=== PATIENT | female | born 1950 | race Caucasian/White ===

== ENCOUNTER 2016-08-30 12:00 | Inpatient (IN) | payer BC ==
[~2016-08-30] VITALS: Ht 157.5 cm; Wt 63.0 kg
[~2016-08-30 12:00] MED LIST: CENTRUM KIDS PO; GABAPENTIN600 MG PO; NEURONTIN300 MG PO; TIMOPTIC2.5 M1 BOTH EYES
[2016-08-30 13:16] LABS: D-DIMER ELISA 0.41 mg/L FEU (< 0.57)
[2016-08-30 13:20] LABS: CHLORIDE 99 mEq/L (99-109); POTASSIUM 4.1 mEq/L (3.7-5.4); SODIUM 142 mEq/L (136-147)
[2016-08-30 13:22] LABS: GLUCOSE 154 mg/dL (70-99)
[2016-08-30 13:24] LABS: ANION GAP 12 MEQ/L (2-14); TOTAL BILIRUBIN 0.5 mg/dL (0.0-1.0)
[2016-08-30 13:26] LABS: ALKALINE PHOSPHATASE 69 IU/L (3-129); GFR ESTIMATE (CALCULATED) > 59 mL/min/
[2016-08-30 13:27] LABS: UREA NITROGEN (BUN) 8 mg/dL (9-23)
[2016-08-30 13:30] LABS: EOSINOPHIL (%) 2.2 % (0-5); EOSINOPHIL COUNT 0.3 K/uL (0-0.3); HEMATOCRIT 43.4 % (36.0-46.0); IMMATURE GRANULOCYTE (%) 0.3 % (0.0-0.7); IMMATURE GRANULOCYTE COUNT 0.3 K/uL; LYMPHOCYTE COUNT 1.4 K/uL (1.0-2.8); MCHC 32.7 G/DL (30.0-36.0); MCV 91.8 FL (83-99); MEAN PLAT.VOLUME 9.6 uM^3 (9.5-12.4); MONOCYTE (%) 9.1 % (3-12); MONOCYTE COUNT 1.1 K/uL (0-0.8); PLATELET COUNT 385 K/uL (156-360); RBC DIS.WIDTH-CV 12.9 % (11.8-14.6); RED BLOOD COUNT 4.73 M/uL (3.80-5.20); WHITE BLOOD COUNT 11.8 K/uL (4.1-10.2)
[2016-08-30 13:36] LABS: BASE EXCESS 6.4 mEq/L (-3 to +3); BICARBONATE 32.3 mEq/L (22-26); CARBOXY HGB 2.2 % (0-5); COMMENTS - BLOOD GASES A+C+; DEVICE AEROSOL MASK; METHEMOGLOBIN 1.2 % (0-1.5); O2 FLOW 8 L/MIN; PCO2 51 mm Hg (35-45); PO2 158 mm Hg (80-100); SITE RR; pH 7.41 (7.35-7.45)
[2016-08-30 14:20] LABS: TROP-I INTERPRETATION NEGATIVE; TROPONIN-I < 0.01 ng/mL (0.0-0.30)
[2016-08-30] MEDS ORDERED: TIMOPTIC-0100 DROP/1 BOTH EYES (14:46)
[2016-08-30] MEDS ORDERED: CENTRUM SILVER1 EAC3 PO (14:46)
[2016-08-30] MEDS ORDERED: METFORMIN HCL500 M1 PO (14:46)
[2016-08-30] MEDS ORDERED: NEURONTIN300 MG PO ×3 (14:47)
[2016-08-30] MEDS ORDERED: PROAIR HFA8.5 GM IH (14:47)
[2016-08-30] MEDS ORDERED: SPIRIVA1 INHALATI IH (14:47)
[2016-08-30] MEDS ORDERED: BROVANA15 MCG/2 M IH (14:47)
[2016-08-30] MEDS ORDERED: LO-DOSE ASPIRIN81 M2 PO (14:47)
[2016-08-30] MEDS ORDERED: FISH OIL300 MG PO (14:48)
[2016-08-30 17:36] LABS: TROP-I INTERPRETATION NEGATIVE; TROPONIN-I < 0.01 ng/mL (0.0-0.30)
[2016-08-30 18:33] VITALS: BP 118/70
[2016-08-31 00:38] VITALS: BP 127/52
[2016-08-31 03:40] VITALS: BP 107/61
[2016-08-31 08:41] VITALS: BP 110/65
[2016-08-31 09:06] LABS: HEMATOCRIT 38.9 % (36.0-46.0); MCHC 32.1 G/DL (30.0-36.0); MCV 93.3 FL (83-99); MEAN PLAT.VOLUME 9.9 uM^3 (9.5-12.4); PLATELET COUNT 382 K/uL (156-360); RBC DIS.WIDTH-CV 13.1 % (11.8-14.6); RBC DIS.WIDTH-SD 44.2 % (39-53); RED BLOOD COUNT 4.17 M/uL (3.80-5.20); WHITE BLOOD COUNT 10.3 K/uL (4.1-10.2)
[2016-08-31 09:24] LABS: ANION GAP 8 MEQ/L (2-14); CHLORIDE 102 MEQ/L (99-109); GFR ESTIMATE (CALCULATED) > 59 mL/min/; GLUCOSE 199 mg/dL (70-99); POTASSIUM 4.5 MEQ/L (3.7-5.4); SAMPLE HEMOLYSIS CHECK 0; SAMPLE ICTERIC CHECK 0; SAMPLE LIPEMIA CHECK 0; SODIUM 142 MEQ/L (136-147); UREA NITROGEN (BUN) 10 mg/dL (9-23)
[2016-08-31 09:32] LABS: TROP-I INTERPRETATION NEGATIVE; TROPONIN-I < 0.01 ng/mL (0.0-0.30)
[2016-08-31 11:50] VITALS: BP 111/67
[2016-08-31 17:32] VITALS: BP 112/62
[2016-08-31 23:04] VITALS: BP 119/72
[2016-09-01 08:50] VITALS: BP 114/69
[2016-09-01 23:59] VITALS: BP 134/69
[2016-09-02 07:50] VITALS: BP 125/79
[2016-09-02] MEDS ORDERED: AZITHROMYCIN250 MG PO (12:40)
[2016-09-02] MEDS ORDERED: CEFTIN500 MG PO (12:40)
[2016-09-02] MEDS ORDERED: DUONEB 2.5-0.5 M3 ML AEROSOL (12:40)
== END 2016-09-02 17:11 | disposition home health service (06) | DRG 190 ==
LOC: EME 12:00 → EDOF 13:58 → 5EAST 13:58
PROVIDERS: Emergency Medicine; Pediatrics; Physician Assistant
DX: J44.1 Chronic obstructive pulmonary disease with (acute) exacerbation (principal); J96.21 Acute and chronic respiratory failure with hypoxia; E11.40 Type 2 diabetes mellitus with diabetic neuropathy, unspecified; D75.1 Secondary polycythemia; E78.5 Hyperlipidemia, unspecified; F17.210 Nicotine dependence, cigarettes, uncomplicated; J98.4 Other disorders of lung; J32.9 Chronic sinusitis, unspecified; Z99.81 Dependence on supplemental oxygen; Z88.0 Allergy status to penicillin; Z88.1 Allergy status to other antibiotic agents; Z88.2 Allergy status to sulfonamides; Z83.3 Family history of diabetes mellitus; Z80.0 Family history of malignant neoplasm of digestive organs; Z82.0 Family history of epilepsy and other diseases of the nervous system
CPT/HCPCS: 36600; 71010; 71020; 80048; 80053; 82800; 82803; 83605; 83880; 84484; 85025; 85027; 85379; 93005; 94640; 94640 76; 94644; 94799; 99281; 99285; J0456; J0696; J1100; J1650; J2930; J3475; J7030; J7050; J7512

== ENCOUNTER 2018-02-21 16:14 | Emergency (ER) | payer BC ==
[~2018-02-21] VITALS: Ht 157.5 cm; Wt 69.4 kg
[~2018-02-21 16:14] MED LIST changes: +AZITHROMYCIN250 MG PO; +BROVANA15 MCG/2 M IH; +CEFTIN500 MG PO; +CENTRUM SILVER1 EAC3 PO; +DUONEB 2.5-0.5 M3 ML AEROSOL; +FISH OIL300 MG PO; +LO-DOSE ASPIRIN81 M2 PO; +METFORMIN HCL500 M1 PO; +PROAIR HFA8.5 GM IH; +SPIRIVA1 INHALATI IH; +TIMOPTIC-0100 DROP/1 BOTH EYES
[2018-02-21 16:40] LABS: HEMATOCRIT 45.3 % (36.0-46.0); HEMOGLOBIN 15.2 G/DL (11.9-15.5); MCH 30.3 PG (29.0-34.0); MCHC 33.6 G/DL (30.0-36.0); MCV 90.2 FL (83-99); PLATELET COUNT 292 K/uL (156-360); RBC DIS.WIDTH-CV 12.5 % (11.8-14.6); RBC DIS.WIDTH-SD 40.9 % (39-53); RED BLOOD COUNT 5.02 M/uL (3.80-5.20); WHITE BLOOD COUNT 14.7 K/uL (4.1-10.2)
[2018-02-21 16:51] LABS: ALBUMIN 4.3 g/dL (3.2-4.8); CHLORIDE 103 mEq/L (99-109); POTASSIUM 4.2 mEq/L (3.7-5.4)
[2018-02-21 16:52] LABS: SODIUM 144 mEq/L (136-147)
[2018-02-21 16:54] LABS: GLUCOSE 178 mg/dL (70-99); TOTAL PROTEIN 7.1 g/dL (6.4-8.3)
[2018-02-21 16:55] LABS: APPEARANCE CLEAR ((CLEAR)); BILIRUBIN NEGATIVE; BLOOD LARGE; COLOR STRAW ((YELLOW)); GLUCOSE (STRIP) NEGATIVE; KETONES NEGATIVE; LEUKOCYTES TRACE; NITRITE NEGATIVE; PROTEIN (STRIP) NEGATIVE; SPECIFIC GRAVITY 1.004 (1.000-1.030); UROBILINOGEN 0.2 MG/DL (0.2-1.0)
[2018-02-21 16:56] LABS: TOTAL BILIRUBIN 0.4 mg/dL (0.0-1.0)
[2018-02-21 16:57] LABS: BACTERIA RARE /HPF; EPITHELIAL CELLS RARE /HPF; HYALINE CASTS 0-5 /LPF; MUCUS NONE SEEN /LPF; RED BLOOD CELLS 0-5 /HPF (0-5); UCUL ADDED? YES
[2018-02-21 16:57] LABS: ALKALINE PHOSPHATASE 94 IU/L (3-129); CREATININE 0.8 mg/dL (0.6-1.3); GFR ESTIMATE (CALCULATED) > 59 mL/min/
[2018-02-21 16:59] LABS: AST (GOT) 19 IU/L (2-34); UREA NITROGEN (BUN) 7 mg/dL (9-23)
[2018-02-21 17:00] LABS: ALT (GPT) 23 IU/L (3-49)
[2018-02-21] MEDS ORDERED: BACTRIM,SEPT1 TABLET PO (17:22)
[2018-02-21 18:26] VITALS: BP 111/76
== END 2018-02-21 18:29 | disposition home or self-care (01) ==
LOC: EME 16:14
DX: N12 Tubulo-interstitial nephritis, not specified as acute or chronic (principal); K21.9 Gastro-esophageal reflux disease without esophagitis; Z87.891 Personal history of nicotine dependence; Z79.82 Long term (current) use of aspirin; Z88.1 Allergy status to other antibiotic agents; Z88.0 Allergy status to penicillin; Z88.8 Allergy status to other drugs, medicaments and biological substances
CPT/HCPCS: 80053; 81003; 85027; 87077; 87086; 87186; 99281; 99284